=== PATIENT | female | born 1990 | race Caucasian/White ===

== ENCOUNTER 2023-08-29 19:44 | Emergency (ER) | payer OTHER ==
[2023-08-29 20:06] VITALS: BP 103/56; PULSE 80; RESP 20; TEMP 99.4; BMI 23.0
[2023-08-29] MEDS ORDERED: ACETAMINOPHEN 500 MG TABLET (FP) PO ONE (21:00)
[2023-08-29] MEDS ORDERED: ACETAMINOPHEN 500 MG TABLET (FP) ONE (21:04)
[2023-08-29 21:46] LABS: THROAT:GRP A STREP NOT DETECTED (NOTDETECTED)
== END 2023-08-29 22:23 | disposition home or self-care (01) ==
LOC: JERFT 19:44
DX: R50.9 Fever, unspecified (principal); R53.83 Other fatigue; R51.9 Headache, unspecified; R09.81 Nasal congestion; B34.9 Viral infection, unspecified; J10.1 Influenza due to other identified influenza virus with other respiratory manifestations; Z20.822 Contact with and (suspected) exposure to COVID-19
CPT/HCPCS: 0241U-QW; 87651; 99283-25